=== PATIENT | male | born 1940 | race Caucasian/White ===

== ENCOUNTER 2016-05-22 05:39 | Day surgery (SDC) | payer OTHER ==
[2016-05-16 15:42] VITALS: BMI 21.1
[2016-05-22] MEDS ORDERED: KETAMINE HCL 500 MG/10 ML VIAL ONE (08:04)
[2016-05-22] MEDS ORDERED: LACTATED RINGERS SOLUTION 1,000 ML IV SCH (08:45)
[2016-05-22 09:33] VITALS: TEMP 97.7
[2016-05-22 09:34] VITALS: BP 129/72; PULSE 77
== END 2016-05-22 09:35 | disposition home or self-care (01) ==
LOC: FECT 05:39
PROVIDERS: ATTEND Psychiatry & Neurology Psychiatry
PROC: GZB4ZZZ Other Electroconvulsive Therapy (ICD-10-PCS; principal; 2016-05-22 08:30)
DX: F33.2 Major depressive disorder, recurrent severe without psychotic features (principal)
CPT/HCPCS: 90870; 94760

== ENCOUNTER → 2016-05-24 | Day surgery (SDC) | payer OTHER ==
[2016-04-26 13:10] VITALS: BMI 21.1
[~2016-05-24] MED LIST: KETAMINE HCL 500 MG/10 ML VIAL ONE; LACTATED RINGERS SOLUTION 1,000 ML IV SCH; ONDANSETRON 4 MG/2 ML VIAL IVPUSH PRN; PROMETHAZINE HCL 25 MG/1 ML VIAL IVPUSH PRN
[2016-05-24 09:52] VITALS: BP 139/79; PULSE 79; TEMP 98.4
== END | disposition home or self-care (01) ==
LOC: FECT 04-30 05:38
PROVIDERS: ATTEND Psychiatry & Neurology Psychiatry
PROC: GZB4ZZZ Other Electroconvulsive Therapy (ICD-10-PCS; principal; 2016-05-24 08:15)
DX: F33.2 Major depressive disorder, recurrent severe without psychotic features (principal)
CPT/HCPCS: 90870; 94760

== ENCOUNTER 2016-05-29 05:50 | Day surgery (SDC) | payer OTHER ==
[2016-05-25 11:23] VITALS: BMI 21.1
--- NOTE | 2016-05-29 06:53 | HP ---
Admitting History and Physical - Admission History of Present Illness: patient is a 75 y/o male with a past medical history of depression and copd. patient presents for ECT, his last ECT was 05/24/15. patient reports an improvement of depression. patient reports and improvement in depressive symptoms since starting ECT. However, patient still reports decreased appetite. He denies any changes in medication, he denies any recent illness or hospitalization. patient denies any suicidal or homicidal ideation. History Source: Patient - Past Medical History Pulmonary: Yes: COPD, Other Psych: Yes: Depression - Smoking History Smoking history: Former smoker Have you smoked in the past 12 months: No Aproximately how many cigarettes per day: 0 If you are a former smoker, when did you quit?: 2008 - Alcohol/Substance Use Hx Alcohol Use: No - Social History ADL: Support Services Home Medications - Allergies Allergies/Adverse Reactions: Allergies Allergy/AdvReac Type Severity Reaction Status Date / Time Penicillins Allergy Unknown UNKNOWN Verified 04/26/16 12:06 - Home Medications Home Medications: Ambulatory Orders Albuterol Sulfate [Proair Respiclick] 90 mcg IH DAILY PRN 04/26/16 Clonazepam [Klonopin] 1 mg PO HS 04/26/16 Cyclobenzaprine HCl [Flexeril -] 5 mg PO HS 04/26/16 Cyproheptadine Solution [Periactin Solution -] 2 mg PO Q12H 04/26/16 Tiotropium [place] [Spiriva] 1 inh PO DAILY 04/26/16 Family Disease History - Family Disease History Family History: Unremarkable Review of Systems - Review of Systems Constitutional: reports: Other (decreased appetite) Eyes: reports: No Symptoms HENT: reports: No Symptoms Neck: reports: No Symptoms Cardiovascular: reports: No Symptoms Respiratory: reports: No Symptoms Gastrointestinal: reports: No Symptoms Genitourinary: reports: No Symptoms Breasts: reports: No Symptoms Reported Musculoskeletal: reports: No Symptoms Integumentary: reports: No Symptoms Neurological: reports: No Symptoms Endocrine: reports: No Symptoms Hematology/Lymphatic: reports: No Symptoms Psychiatric: reports: No Symptoms Physical Examination Constitutional: Yes: Well Nourished, No Distress, Calm Eyes: Yes: WNL, Conjunctiva Clear, EOM Intact HENT: Yes: WNL, Atraumatic, Normocephalic Neck: Yes: WNL, Supple, Trachea Midline Cardiovascular: Yes: WNL, Regular Rate and Rhythm, S1, S2 Respiratory: Yes: WNL, Regular, CTA Bilaterally Gastrointestinal: Yes: WNL, Normal Bowel Sounds, Soft ...Rectal Exam: Yes: Deferred Renal/: Yes: WNL. No: CVA Tenderness - Left, CVA Tenderness - Right Musculoskeletal: Yes: WNL Extremities: Yes: WNL Edema: No Peripheral Pulses WNL: Yes Peripheral Pulses: Left Radial: 4+, Right Radial: 4+, Left Doralis Pedis: 3+, Right Dorsalis Pedis: 3+, Left Femoral: 3+, Right Femoral: 3+ Integumentary: Yes: WNL Neurological: Yes: WNL, Alert, Oriented ...Motor Strength: WNL Psychiatric: Yes: WNL, Alert, Oriented Labs: reviewed 05/04 Imaging - Results EKG: Report Reviewed, Image Reviewed, Other (nsr left BBB, unchanged from 04/04) Assessment/Plan patient is a 75 y/o male that presents for ECT, patient has received ECT in the past, he denies any adverse reaction to anestheisa. labs and ekg reviewed. pt is low risk for ECT informed consent, risks and benefits to be obtained by Dr Chen
[2016-05-29 07:00] VITALS: TEMP 97.8
[2016-05-29] MEDS ORDERED: LACTATED RINGERS SOLUTION 1,000 ML IV SCH (07:30)
[2016-05-29 09:35] VITALS: BP 128/73; PULSE 77
== END 2016-05-29 09:25 | disposition home or self-care (01) ==
LOC: FECT 05:50
PROVIDERS: ATTEND Psychiatry & Neurology Psychiatry
PROC: GZB4ZZZ Other Electroconvulsive Therapy (ICD-10-PCS; principal; 2016-05-29 08:15)
DX: F33.2 Major depressive disorder, recurrent severe without psychotic features (principal)
CPT/HCPCS: 90870; 94760

== ENCOUNTER 2016-06-01 05:48 | Day surgery (SDC) | payer OTHER ==
[2016-05-25 11:48] VITALS: BMI 21.1
[2016-06-01 09:10] VITALS: TEMP 98.9
[2016-06-01 09:21] VITALS: BP 130/81; PULSE 63
== END 2016-06-01 09:15 | disposition home or self-care (01) ==
LOC: FECT 05:48
PROVIDERS: ATTEND Psychiatry & Neurology Psychiatry
PROC: GZB4ZZZ Other Electroconvulsive Therapy (ICD-10-PCS; principal; 2016-06-01 08:15)
DX: F33.2 Major depressive disorder, recurrent severe without psychotic features (principal)
CPT/HCPCS: 90870; 94760

== ENCOUNTER 2016-06-08 05:45 | Day surgery (SDC) | payer OTHER ==
[2016-06-01 15:47] VITALS: BMI 21.1
[2016-06-08 09:52] VITALS: TEMP 97.6
[2016-06-08 10:29] VITALS: BP 120/70; PULSE 72
[2016-06-08] MEDS ORDERED: ONDANSETRON 4 MG/2 ML VIAL IVPUSH PRN (12:43)
[2016-06-08] MEDS ORDERED: LACTATED RINGERS SOLUTION 1,000 ML IV SCH (12:45)
== END 2016-06-08 10:20 | disposition home or self-care (01) ==
LOC: FECT 05:45
PROVIDERS: ATTEND Psychiatry & Neurology Psychiatry
PROC: GZB4ZZZ Other Electroconvulsive Therapy (ICD-10-PCS; principal; 2016-06-08 08:30)
DX: F33.2 Major depressive disorder, recurrent severe without psychotic features (principal)
CPT/HCPCS: 90870; 94760